=== PATIENT | male | born 1940 | race Caucasian/White ===

== ENCOUNTER → 2017-03-13 | Outpatient (CLI) | payer MEDICARE ==
[2017-03-13 12:45] LABS: Blood Urea Nitrogen 12 mg/dL (9-20); Non-African American GFR(MDRD) >60 (>60 ml/min/1.73 sqM)
--- NOTE | 2017-03-13 15:03 | CT ---
EXAMINATION TYPE: CT abdomen pelvis w con DATE OF EXAM: 03/13/2017 COMPARISON: NONE HISTORY: Microscopic hematuria CT DLP: 905 mGycm, Automated Exposure Control for Dose Reduction was Utilized. CONTRAST: CT scan of the abdomen and pelvis is performed with oral and with IV Contrast, patient injected with 100 ml mL of Omnipaque 300. FINDINGS: LUNG BASES: No significant abnormality is appreciated. LIVER/GB: Several gallstones are seen in somewhat contracted gallbladder. PANCREAS: No significant abnormality is seen. SPLEEN: No significant abnormality is seen. ADRENALS: No significant abnormality is seen. KIDNEYS: There is symmetric cortical medullary uptake and excretion from both kidneys without evidenc e of worrisome solid or cystic mass or hydronephrosis seen bilaterally. No definitive nephrolithiasis is identified. Bladder is poorly distended. There is mild to moderate abnormal concentric wall thick ening measuring up to 10 mm in size. A cystitis cannot be excluded. BOWEL: Oral contrast reaches level of rectum. There is no suspicious small or large bowel dilatation. There are surgical changes from right-sided partial colectomy. There is mild to moderate wall thicke rossy involving the sigmoid rectal colon. PROSTATE/SEMINAL VESICLES: Prostate gland is mildly enlarged bulging on bladder base. Correlate for B PH. Scattered pelvic phleboliths are present. LYMPH NODES: No greater than 1cm abdominal or pelvic lymph nodes are appreciated. OSSEOUS STRUCTURES: There is moderate multilevel spurring and disc space narrowing throughout the lum bar spine. Multilevel vacuum disc phenomenon is present. There is multilevel facet arthropathy in the mid to lower lumbar spine. OTHER: No significant additional abnormality is seen. IMPRESSION: 1. No significant finding is seen to account for patient's clinical symptoms of microscopic hematuria . Cannot exclude cystitis, correlate clinically. Finding also may be product of enlarged prostate gla nd causing outlet obstruction. 2. Possible distal colitis, correlate clinically.
== END | disposition home or self-care (01) ==
LOC: RADCTMAIN 11:57
PROVIDERS: ATTEND Urology
DX: R31.29 Other microscopic hematuria (principal)
CPT/HCPCS: 82565; 84520; 74177; 36415; Q9967